=== PATIENT | male | born 1995 | race Caucasian/White ===

== ENCOUNTER 2020-06-15 21:00 | Emergency (ER) | payer OTHER, MEDICAID ==
[~2020-06-15] VITALS: Ht 177.8 cm; Wt 83.9 kg
[2020-06-15] MEDS ORDERED: PREDNISONE 10 M10 M1 PO (21:27)
[2020-06-15] MEDS ORDERED: DIPHENHIST50 MG PO (21:27)
[2020-06-15 21:28] VITALS: BP 122/89
== END 2020-06-15 21:28 | disposition home or self-care (01) ==
LOC: M.ERS 21:00
DX: L25.9 Unspecified contact dermatitis, unspecified cause (principal)

== ENCOUNTER 2021-04-20 23:42 | Emergency (ER) | payer OTHER, MEDICAID ==
[~2021-04-20] VITALS: Ht 177.8 cm; Wt 83.9 kg
[~2021-04-20 23:42] MED LIST: DIPHENHIST50 MG PO; PREDNISONE 10 M10 M1 PO
[2021-04-21 00:44] LABS: ABSOLUTE EOSINOPHILS 0.3 thou/uL (0.0-0.7); ABSOLUTE MONOCYTES 0.6 thou/uL (0.0-1.2); ABSOLUTE NEUTROPHILS 11.5 thou/uL (1.6-8.1); BASOPHILS 0.3 %; EOSINOPHILS 2.3 %; HEMATOCRIT 44.1 % (42.0-52.0); HEMOGLOBIN 15.4 gm/dL (14.0-18.0); LYMPHOCYTES 7.6 %; MCH 31.2 pg (26.0-34.0); MCHC 34.8 g/dL (28.0-37.0); MCV 89.7 fL (80.0-100.0); MONOCYTES 4.6 %; MPV 7.3 fl. (7.2-11.1); NUCLEATED RBCS 0 /100WBC; PLATELET COUNT* 197 thou/uL (150-400); POLYS 85.2 %; RBC 4.92 mil/uL (4.50-6.00); RDW-CV 13.7 % (10.5-14.5); WBC 13.5 thou/uL (4.0-11.0)
[2021-04-21 00:48] LABS: CALCIUM 8.9 mg/dL (8.5-10.1); CREATININE 0.9 mg/dL (0.6-1.3); POTASSIUM 3.7 mmol/L (3.5-5.1)
[2021-04-21 00:53] LABS: MAGNESIUM 1.9 mg/dL (1.8-2.4); TOTAL BILIRUBIN 0.5 mg/dL (<0.1-1.0); TOTAL PROTEIN 7.4 g/dL (6.4-8.2)
[2021-04-21] MEDS ORDERED: PROAIR HFA8.5 GM INH (01:18)
[2021-04-21] MEDS ORDERED: PREDNISONE50 MG PO (01:18)
[2021-04-21 02:05] VITALS: BP 131/71
== END 2021-04-21 02:05 | disposition home or self-care (01) ==
LOC: M.ERS 23:42
PROVIDERS: Emergency Medicine
DX: J40 Bronchitis, not specified as acute or chronic (principal); Z20.822 Contact with and (suspected) exposure to COVID-19